=== PATIENT | female | born 2000 | race Caucasian/White ===

== ENCOUNTER 2021-06-03 23:43 | Emergency (ER) | payer SELFPAY ==
--- NOTE | 2021-06-03 00:10 | RAD_ITS ---
STUDY: X-RAY - LEFT KNEE REASON FOR EXAM: Female, 21 years old. Pain after trauma TECHNIQUE: 2 view(s) of the knee. COMPARISON: None. FINDINGS: Normal visualized distal femur. Normal visualized proximal tibia and fibula. Normal proximal tibiofibular articulation. Normal medial femorotibial compartment. Normal lateral femorotibial compartment. Normal patellofemoral articulation. The soft tissue structures are unremarkable. RAD/Knee 1 or 2 Views IMPRESSION: Normal x-ray examination of the knee. Electronically Signed: Michele Valle MD at 0:24 EST ,
[2021-06-03 23:44] VITALS: BP 145/99; PULSE 123; RESP 16; TEMP 36.7; O2SAT 98; BMI 19.0
[2021-06-03 23:49] VITALS: BP 148/95; PULSE 113; RESP 17; TEMP 36.6; O2SAT 98; BMI 22.3
--- NOTE | 2021-06-03 23:56 | ED.VIS.LOWEX ---
HPI History of Present Illness Chief Complaint: Lower Extremity Injury Informant: patient and friend Occured/Mechanism Mechanism/Context: Yes fall Comment: someone tripped me Onset/Context/Timing Onset: Today (JPTA) Context: Sudden Onset Timing: Continuous Quality of Pain: Throbbing Current Severity: Severe Maximum Severity: Severe Worsened by: any movement Relieved by: nothing Associated Symptoms Associated Symptoms: Negative for Parasthesia and Weakness Narrative Narrative: Patient states she was tripped and fell like a cartoon with her left lower extremity back behind her, possibly landing on her knee but the injury is at her left knee. She states the pain is extreme. She tore an MCL on her right knee remotely and states this feels similar. PFSH PFSH Home Medications hydrocodone-acetaminophen 1 tab PO Q4H PRN PRN 2 Days #10 tablet 06/04/21 [Rx Last Taken Unknown] Allergy/AdvReac Type Severity Reaction Status Date / Time No Known Allergies Allergy Verified 06/03/21 23:51 Social History Smoking Status: Never smoker ROS ROS ED Constitutional Constitutional ED: Denies chills or fever(s) Musculoskeletal Musculoskeletal: Reports extremity pain; Denies neck pain Integumentary Denies Abrasions, rash or wounds Neurologic Neurologic: Denies paresthesias or weakness EXAM Physical Exam Const Vital Signs: 06/03/21 23:44 06/03/21 23:49 Temperature 98.1 F 97.8 F Temperature Source Temporal Temporal Pulse Rate 123 H 113 H Respiratory Rate 16 17 Blood Pressure 145/99 H 148/95 H Blood Pressure Mean 114 112 Pulse Ox 98 98 Oxygen Delivery Method Room Air Room Air Positive well nourished and well developed General Appearance ED: well developed and NAD Neck full ROM and supple Back/Spine normal ROM and normal to inspection Extremity Extremity Narrative: Very limited range of motion left knee. Pain and tenderness are diffuse. Appears to be mildly swollen with probable effusion. No deformities. Extensor mechanism intact but patient not able to fully straighten. She is barely able to bend it, maybe 5 or 10 degrees at the most. Therefore not able to assess ACL and PCL, but the joint overall is stable without laxity on stressing the MCL and LCL although this is limited due to the patient guarding and crying. Neuro oriented x3, no focal motor deficits and no sensory deficits noted Sensorium / Orientation: alert Psych thought process normal Mood & Affect: tearful Skin no wounds Rashes: no rashes MDM MDM MDM Narrative Medical decision making narrative: Only able to get 2 view x-ray of the left knee, they are negative for any acute fracture as below. Given the amount of pain at the patient is in, I do suspect she could have internal derangement and should follow-up with orthopedics for reevaluation in about a week or more, to allow for the swelling and inflammation to decrease. She can barely move the knee without being in severe pain. Although she does not have any objective instability at this point, I think she would benefit from a knee immobilizer, we discussed the pros and cons of that including the increased ability to fall, she is aware and in agreement with this as well as crutches. She was also given an Onesimo wrap and instructions for use, I would be okay with her using the Onesimo wrap in a day or 2 if she feels like she is able to with regards to how much pain she is in. We will give her a prescription for some analgesics in the short-term as well, and I also recommend anti-inflammatories. Radiography Diagnostic Testing: Clinical Impression(s) from Imaging Studies Knee X-Ray 06/03/21 00:10 IMPRESSION: Normal x-ray examination of the knee. Electronically Signed: Michele Valle MD at 0:24 EST , Discharge Plan Triage Chief Complaint: Lower Extremity Injury ED Provider: Amadeo Alvarenga Dx/Rx/DC Orders Clinical Impression: Injury of left knee Instructions: ED Knee Immobilizer, ED Knee Effusion, ED Knee Sprain Prescriptions: New hydrocodone-acetaminophen [hydrocodone-acetaminophen] 1 TABLET tablet 1 tab PO Q4H PRN PRN (Reason: Pain) 2 Days Qty: 10 RF: 0 Primary Care Provider: Care Physician,No Primary Referrals: Melquiades Foley DO [STAFF PHYSICIAN] - 1 Week (call for appt; better to be seen after the pain, inflammation, and swelling go down some) Activity Restrictions/Additional Instructions: Take ibuprofen or Aleve in addition to the prescription, using the prescription if you need to above and beyond the anti-inflammatories. Ice your knee whenever you are resting. Disposition Disposition: Home, Self Care
[2021-06-03] MEDS: oxyCODONE 5 MG Tablet PO (23:59)
== END 2021-06-04 00:55 | disposition home or self-care (01) ==
LOC: ED 06-04 00:39
PROVIDERS: Emergency Provider Emergency Medicine; Visit Provider Emergency Medicine
DX: S89.92XA Unspecified injury of left lower leg, initial encounter (principal); W19.XXXA Unspecified fall, initial encounter
CPT/HCPCS: 73560; 99284